=== PATIENT | female | born 1950 | race Caucasian/White ===

== ENCOUNTER 2025-04-06 03:47 | Emergency (ER) | payer OTHER ==
[~2025-04-06] VITALS: Ht 149.9 cm; Wt 54.0 kg
[2025-04-06 04:27] LABS: PLATELET COUNT (AUTO) 357 K/uL (179-408); RED BLOOD CELL COUNT(AUTO) 4.34 MIL/uL (3.63-4.92); RED CELL DISTRIBUTION WIDTH 15.5 % (12.3-17.7); WHITE BLOOD COUNT (AUTO) 10.6 K/uL (3.8-11.8)
[2025-04-06 04:33] LABS: CREATININE 0.6 mg/dL (0.6-1.3); SODIUM SERUM 140 mmol/L (136-145); UREA NITROGEN, BLOOD 13 mg/dL (7-18)
[2025-04-06 04:39] LABS: ASPARTATE AMINOTRANSFERASE 27 U/L (15-37); TOTAL PROTEIN, SERUM 6.8 g/dL (6.4-8.2)
[2025-04-06 04:41] LABS: *BILIRUBIN,URIN NEGATIVE (NEGATIVE); *BLOOD, URINE 3+ (NEGATIVE); *CLARITY,URINE CLOUDY (CLEAR); *COLOR,URINE YELLOW (YELLOW); *KETONES,URINE NEGATIVE (NEGATIVE); *PROTEIN,URINE TRACE (NEGATIVE); *UROBILINOGEN,URINE 0.2 E.U./dl (NORMAL); LEUKOCYTE ESTERASE ,URINE 3+ (NEGATIVE); NITRITE, URINE POSITIVE (NEGATIVE); UGLUCOSE NEGATIVE (NEGATIVE)
[2025-04-06 04:56] LABS: SQUAMOUS EPITHELIAL CELL,UR FEW /HPF (NONE SEEN)
[2025-04-06] MEDS ORDERED: HYDROCODONE/APAP 5-325MG TABLET ONE (06:22)
[2025-04-06] MEDS: HYDROCODONE/APAP 5-325MG TABLET PO ONE (06:24)
[2025-04-06] MEDS: IV NORMAL SALINE 500 ML IV ONE (06:34)
[2025-04-06] MEDS: IV NS 1000 ML 1,000 ML IV ONE (10:48)
[2025-04-06] MEDS ORDERED: ONDANSETRON 4 MG/2 ML VIAL ONE (11:15)
[2025-04-06] MEDS ORDERED: MORPHINE SULFATE 2 MG/1 ML DISP.SYRIN ONE ×2 (11:16→12:15)
[2025-04-06] MEDS: ONDANSETRON 4 MG/2 ML VIAL IV ONE (11:20)
[2025-04-06] MEDS: MORPHINE SULFATE 2 MG/1 ML DISP.SYRIN IV ONE ×2 (11:21→12:23)
[2025-04-06] MEDS ORDERED: LORAZEPAM 2 MG/1 ML VIAL ONE (12:16)
[2025-04-06] MEDS: LORAZEPAM 2 MG/1 ML VIAL IV ONE (12:23)
[2025-04-06] MEDS ORDERED: SWABABLE VALVE TRANSFER SET EA MC ONE (12:59)
[2025-04-06] MEDS ORDERED: IOHEXOL 350 100 ML INFUS..BTL ONE (12:59)
[2025-04-06] MEDS ORDERED: IV NORMAL SALINE 250 ML IV ONE (12:59)
[2025-04-06 13:53] VITALS: BP 145/99
[2025-04-06 17:24] VITALS: BP 145/99; TEMP 97.9; O2SAT 95
== END 2025-04-06 17:35 | disposition short-term general hospital (02) ==
LOC: ER 03:47
DX: T83.518A Infection and inflammatory reaction due to other urinary catheter, initial encounter (principal); R10.84 Generalized abdominal pain; D49.2 Neoplasm of unspecified behavior of bone, soft tissue, and skin; E78.5 Hyperlipidemia, unspecified; G82.20 Paraplegia, unspecified; I10 Essential (primary) hypertension; J98.4 Other disorders of lung; K44.9 Diaphragmatic hernia without obstruction or gangrene; K59.00 Constipation, unspecified; M54.30 Sciatica, unspecified side; N32.89 Other specified disorders of bladder; N39.0 Urinary tract infection, site not specified; Z74.01 Bed confinement status; Z88.7 Allergy status to serum and vaccine; Z20.822 Contact with and (suspected) exposure to COVID-19; Y84.6 Urinary catheterization as the cause of abnormal reaction of the patient, or of later complication, without mention of misadventure at the time of the procedure
CPT/HCPCS: 99285; 71275; 96361; 96365; 96375; 87426; 87081; 80076; 80048; 81001; 83690; 85025; 85379; 87186; 87086; 87077; 36415; 74176; 51702; 83605; 96376; J0696; J2060; J2405; Q9967; J2270 ×2; J7040 ×2; A4606; A4663